=== PATIENT | female | born 1960 ===

== ENCOUNTER 2016-08-08 18:59 | Emergency (ER) | payer MEDICAID ==
[2016-08-08 19:16] VITALS: BMI 39.6
[2016-08-08 19:17] VITALS: BP 171/96; PULSE 68; TEMP 98.6
[2016-08-08] MEDS ORDERED: Sodium Chloride 0.9% 1,000 ML IV STA (19:19)
[2016-08-08] MEDS ORDERED: Pantoprazole 40 MG in Sodium Chloride 0.9% 100 ML IV STA (19:19)
--- NOTE | 2016-08-08 19:19 | ED PDOC ---
Arrival/HPI - General Time Seen by Provider: 08/08/16 19:15 Historian: Patient - History of Present Illness Narrative History of Present Illness (Text): 08/08/16 19:19 Mary Molina is a 55 year old female, whose past medical history includes hypertension and cholecystectomy, who presents to the ED complaining of epigastric pain for 1 day. Patient reports associated nausea. Patient denies any fever, chills, chest pain, shortness of breath, vomiting, diarrhea, urinary symptoms, back pain, neck pain, headache, dizziness, or any other complaints. Time/Duration: < week (1 day) Symptom Onset: Gradual Symptom Course: Unchanged Activities at Onset: Rest, Light Context: Home Past Medical History - Provider Review Nursing Documentation Reviewed: Yes - Infectious Disease Hx of Infectious Diseases: None - Tetanus Immunization Tetanus Immunization: Up to Date - Cardiac Hx Cardiac Disorders: Yes Hx Hypertension: Yes - Pulmonary Hx Respiratory Disorders: No Hx Asthma: No Hx Bronchitis: No Hx Chronic Obstructive Pulmonary Disease (COPD): No Hx Emphysema: No Hx Pneumonia: No Hx Respiratory Aspiration: No Hx Respiratory Tract Infection: No Hx Sleep Apnea: No Hx Tuberculosis: No - Neurological Hx Neurological Disorder: No Hx Alzheimer's Disease: No HX Cerebrovascular Accident: No Hx Dementia: No Hx Dizziness: No Hx Meningitis: No Hx Migraine: No Hx Parkinson's Disease: No Hx Seizures: No Hx Transient Ischemic Attacks (TIA): No - HEENT Hx HEENT Disorder: No Hx Blind: No Hx Cataracts: No Hx Deafness: No Hx Difficulty Chewing: No Hx Epistaxis: No Hx Glaucoma: No Hx Macular Degeneration: No - Renal Hx Renal Disorder: No Hx Dialysis: No Hx Kidney Stones: No Hx Neurogenic Bladder: No Hx Pyelonephritis: No Hx Renal Cancer: No Hx Renal Failure: No - Endocrine/Metabolic Hx Endocrine Disorders: No Hx Adrenal Cancer: No Hx Diabetes Insipidus: No Hx Diabetes Mellitus Type 1: No Hx Diabetes Mellitus Type 2: No Hx Hyperthyroidism: No Hx Hypothyroidism: No Hx Systemic Lupus Erythematosus: No - Hematological/Oncological Hx Blood Disorders: No Hx AIDS: No Hx Anemia: No Hx Cancer: No Hx Chemotherapy: No Hx Cirrhosis: No Hx Hemophilia: No Hx Hepatitis A: No Hx Hepatitis B: No Hx Hepatitis C: No Hx Metastasis: No Hx Shingles: No Hx Sickle Cell Disease: No Hx Unexplained Bleeding: No - Integumentary Hx Dermatological Disorder: No Hx Basal Cell Carcinoma: No Hx Eczema: No Hx Melanoma: No Hx Psoriasis: No Hx Squamous Cell Carcinoma: No - Musculoskeletal/Rheumatological Hx Falls: No - Gastrointestinal Hx Gastrointestinal Disorders: No Hx Colostomy: No Hx Crohn's Disease: No Hx Diverticulitis: No Hx Gall Bladder Disease: No Hx Gastroesophageal Reflux: No Hx Gastrointestinal Ulcer: No Hx Ileostomy: No Hx Liver Failure: No Hx Pancreatitis: No HX Swallowing Problems: No - Genitourinary/Gynecological Hx Genitourinary Disorders: No Hx Hematuria: No Hx Incontinence: No Hx Prostate Problems: No Hx Sexually Transmitted Diseases: No Hx Urinary Tract Infection: No - Psychiatric Hx Psychophysiologic Disorder: No Hx Anxiety: No Hx Bipolar Disorder: No Hx Depression: No Hx Emotional Abuse: No Hx Hallucinations: No Hx Panic Disorder: No Hx Post Traumatic Stress Disorder: No Hx Psychosis: No Hx Physical Abuse: No Hx Schizophrenia: No Hx Sexual Abuse: No Hx Substance Use: No - Past Surgical History Past Surgical History: No Previous - Surgical History Hx Amputation: No Hx Appendectomy: No Hx Cardiac Catheterization: No Hx Cholecystectomy: Yes Hx Coronary Stent: No Hx Gastric Bypass Surgery: No Hx Hysterectomy: Yes Hx Joint Replacement: No Hx Kidney Transplant: No Hx Liver Transplant: No Hx Mastectomy: No Hx Musculoskeletal Surgery: No Hx Open Heart Surgery: No Hx Orthopedic Surgery: No Hx Splenectomy: No Hx Valve Replacement: No - Suicidal Assessment Feels Threatened In Home Enviroment: No Family/Social History - Physician Review Nursing Documentation Reviewed: Yes Family/Social History: No Known Family HX Smoking Status: Never Smoked Hx Alcohol Use: No Hx Substance Use: No Hx Substance Use Treatment: No Allergies/Home Meds Allergies/Adverse Reactions: Allergies No Known Allergies Allergy (Verified 08/08/16 19:19) Home Medications: Home Meds Medication Instructions Recorded Confirmed Atenolol [Tenormin] 12.5 mg PO DAILY 10/25/15 08/08/16 Omeprazole [Omeprazole] 40 mg PO DAILY 04/09/16 08/08/16 Review of Systems - Physician Review All systems were reviewed & negative as marked: Yes - Review of Systems Constitutional: Normal. absent: Fevers Eyes: Normal ENT: Normal Respiratory: Normal. absent: SOB, Cough Cardiovascular: Normal. absent: Chest Pain Gastrointestinal: Abdominal Pain, Nausea. absent: Diarrhea, Vomiting Genitourinary Female: Normal. absent: Dysuria, Frequency, Hematuria, Urine Output Changes Musculoskeletal: Normal. absent: Back Pain, Neck Pain Skin: Normal. absent: Rash Neurological: Normal. absent: Headache, Dizziness Endocrine: Normal Hemo/Lymphatic: Normal Psychiatric: Normal Physical Exam Vital Signs Reviewed: Yes Vital Signs Temp Pulse Resp BP Pulse Ox 08/08/16 21:39 16 98 08/08/16 19:16 98.6 F 68 17 171/96 H 99 Temperature: Afebrile Blood Pressure: Hypertensive Pulse: Regular Respiratory Rate: Normal Appearance: Positive for: Well-Appearing, Non-Toxic, Comfortable Pain Distress: None Mental Status: Positive for: Alert and Oriented X 3 - Systems Exam Head: Present: Atraumatic, Normocephalic Pupils: Present: PERRL Extroacular Muscles: Present: EOMI Conjunctiva: Present: Normal Mouth: Present: Moist Mucous Membranes Neck: Present: Normal Range of Motion Respiratory/Chest: Present: Clear to Auscultation, Good Air Exchange. No: Respiratory Distress, Accessory Muscle Use Cardiovascular: Present: Regular Rate and Rhythm, Normal S1, S2. No: Murmurs Abdomen: Present: Normal Bowel Sounds. No: Tenderness, Distention, Peritoneal Signs Back: Present: Normal Inspection Upper Extremity: Present: Normal Inspection. No: Cyanosis, Edema Lower Extremity: Present: Normal Inspection. No: Edema Neurological: Present: GCS=15, CN II-XII Intact, Speech Normal Skin: Present: Warm, Dry, Normal Color. No: Rashes Psychiatric: Present: Alert, Oriented x 3, Normal Insight, Normal Concentration Medical Decision Making ED Course and Treatment: 08/08/16 19:19 Impression: 55 year old female complaining of epigastric pain and nausea for 1 day. Plan: -- CT Abdomen and Pelvis w/o contrast -- EKG -- Labs, cardiac enzymes, lipase, amylase -- Urinalysis -- IV fluids -- Zofran -- Protonix -- Reassess and disposition Prior Visits: Notes and results from previous visits were reviewed. Progress Notes: 08/08/16 19:37 Reviewed EKG, sinus rhythm at 79 bpm. Sinus arrhythmia. No acute ischemia. 08/08/16 20:59 Reviewed radiology, CT Abdomen and Pelvis shows: 1. Diverticulosis without CT evidence of diverticulitis. 2. Mild gastric wall thickening vs underdistention. Clinical correlation is needed. 3. Probable LEFT ovarian cyst. Suggest ultrasound. 4. Incidental/non-acute findings are described above. 08/08/16 21:26 On re-evaluation, the patient feels better and is in no acute distress. I have discussed the results and plan with the patient, who expresses understanding. Patient in agreement with plan to discharged home. Patient is stable for discharge. Patient was instructed to follow up with physician/clinic in 1-2 days or return if symptoms worsen or new concerning symptoms arise. Re-evaluation Time: 21:27 Reassessment Condition: Re-examined, Improved - Lab Interpretations Lab Results: 08/08/16 19:30 08/08/16 19:30 Lab Results 08/08/16 19:43: Urine Color Norco, Urine Appearance Sl cloudy, Urine pH 5.0, Ur Specific Baden 1.025, Urine Protein 100 H, Urine Glucose (UA) 250 H, Urine Ketones Trace H, Urine Blood Negative, Urine Nitrate Positive H, Urine Bilirubin Negative, Urine Urobilinogen >=8.0, Ur Leukocyte Esterase Trace H, Urine RBC 0 - 2, Urine WBC 0 - 2, Ur Epithelial Cells 1 - 3 08/08/16 19:30: WBC 7.7 D, RBC 4.44, Hgb 13.3, Hct 38.8, MCV 87.4, MCH 30.0, MCHC 34.3, RDW 13.3, Plt Count 295, MPV 11.3 H, Gran % 33.3 L, Lymph % (Auto) 56.7 H, Carver % (Auto) 7.1 H, Eos % (Auto) 2.1, Baso % (Auto) 0.8, Gran # 2.58, Lymph # 4.4 H, Carver # 0.6, Eos # 0.2, Baso # 0.06, PT 11.3, INR 1.05, APTT 28.1 , Sodium 138, Potassium 4.3, Chloride 102, Carbon Dioxide 26, Anion Gap 14, BUN 12, Creatinine 0.7, Est GFR ( Amer) > 60, Est GFR (Non-Af Amer) > 60, Random Glucose 94, Calcium 9.3, Total Bilirubin 0.8, AST 38, ALT 18, Alkaline Phosphatase 102, Lactate Dehydrogenase 685, Total Creatine Kinase 94, Troponin I < 0.01, Total Protein 7.7, Albumin 3.9, Globulin 3.8, Albumin/Globulin Ratio 1.0 L, Amylase 108, Lipase 226 I have reviewed the lab results: Yes - RAD Interpretation Narrative RAD Interpretations (Text): CT Abdomen and Pelvis shows: Lower thorax: No acute findings. ABDOMEN: Liver: Unremarkable. Gallbladder and bile ducts: Cholecystectomy. No ductal dilation. Pancreas: Unremarkable. No ductal dilation. Spleen: No splenomegaly. Adrenals: No mass. Kidneys and ureters: No renal calculi. No hydronephrosis. Stomach and bowel: Mild mural thickening of gastric antrum versus underdistention. Few scattered diverticula within colon. No associated inflammatory stranding. No definite bowel wall thickening. No obstruction. Appendix: Normal caliber. No inflammation. PELVIS: Bladder: Unremarkable. No stones. Reproductive: 1.8 x 1.3 x 1.4 cm hypodense lesion within LEFT ovary. ABDOMEN and PELVIS: Intraperitoneal space: Trace free fluid within pelvis. No free air. Bones/joints: Mild degenerative changes of spine. No acute fracture. Soft tissues: Tiny umbilical hernia containing fat. Vasculature: Unremarkable. No abdominal aortic aneurysm. Lymph nodes: No pathologically enlarged lymph nodes. IMPRESSION: 1. Diverticulosis without CT evidence of diverticulitis. 2. Mild gastric wall thickening vs underdistention. Clinical correlation is needed. 3. Probable LEFT ovarian cyst. Suggest ultrasound. 4. Incidental/non-acute findings are described above. Radiology Orders: 08/08/16 19:19 ABD & PELVIS W/O PO OR IV CONT [CT] Stat - EKG Interpretation Interpreted by ED Physician: Yes Type: 12 lead EKG - Medication Orders Current Medication Orders: Discontinued Medications Sodium Chloride (Sodium Chloride 0.9%) 1,000 mls @ 100 mls/hr IV .Q10H STA Stop: 08/09/16 05:18 Last Admin: 08/08/16 19:38 Dose: 100 MLS/HR eMAR Start Stop Document 08/08/16 19:38 [email or web address] (Rec: 08/08/16 19:38 [email or web address] [facility] [id number]) Intravenous Solution Start Date 08/08/16 Start Time 19:38 End Date 08/08/16 Pantoprazole Sodium 40 mg/ (Sodium Chloride) 100 mls @ 400 mls/hr IV STAT STA Stop: 08/08/16 19:33 Last Admin: 08/08/16 19:38 Dose: 400 MLS/HR eMAR Start Stop Document 08/08/16 19:38 [email or web address] (Rec: 08/08/16 19:38 [email or web address] [facility] [id number]) Intravenous Solution Start Date 08/08/16 Start Time 19:38 End Date 08/08/16 Ondansetron HCl (Zofran Inj) 4 mg IVP STAT STA Stop: 08/08/16 19:20 Last Admin: 08/08/16 19:39 Dose: 4 MG IVP Administration Document 08/08/16 19:39 [email or web address] (Rec: 08/08/16 19:39 [email or web address] [facility] [id number]) Charges for Administration # of IVP Administrations 1 - Scribe Statement The provider has reviewed the documentation as recorded by the Scribe Jackie Sebastian All medical record entries made by the Scribe were at my direction and personally dictated by me. I have reviewed the chart and agree that the record accurately reflects my personal performance of the history, physical exam, medical decision making, and the department course for this patient. I have also personally directed, reviewed, and agree with the discharge instructions and disposition. Disposition/Present on Arrival - Present on Arrival Any Indicators Present on Arrival: No History of DVT/PE: No History of Uncontrolled Diabetes: No Urinary Catheter: No History Surgical Site Infection Following: None - Disposition Have Diagnosis and Disposition been Completed?: Yes Diagnosis: Abdominal pain Disposition: HOME/ ROUTINE Disposition Time: 21:27 Condition: GOOD Discharge Instructions (ExitCare): Acute Abdominal Pain (ED) Prescriptions: Pantoprazole Sodium [Protonix] 40 mg PO DAILY #14 ect Ondansetron [Zofran Odt] 8 mg PO TID PRN #10 odt PRN Reason: Nausea/Vomiting Referrals: Paty Salvador MD [Primary Care Provider] - Follow up with primary
[2016-08-08 19:52] LABS: ADD MANUAL DIFF? NO
[2016-08-08 19:59] LABS: BASO # 0.06 K/mm3 (0.0-2.0); BASO % 0.8 % (0.0-3.0); EOS # 0.2 (0.0-0.7); EOS % 2.1 % (1.5-5.0); GRAN # 2.58 (1.4-6.5); GRAN % 33.3 % (50.0-68.0); HEMATOCRIT 38.8 % (36.0-48.0); LYMPH # 4.4 (1.2-3.4); LYMPH % 56.7 % (22.0-35.0); MEAN CELL VOLUME 87.4 fL (80.0-105.0); MEAN CORPUSCULAR HGB CONC 34.3 g/dl (31.0-37.0); MEAN PLATELET VOLUME 11.3 fl (7.0-11.0); MONO # 0.6 (0.1-0.6); MONO % 7.1 % (1.0-6.0); PLATELET COUNT 295 10^3/uL (120.0-450.0); RED CELL DISTRIBUTION WIDTH 13.3 % (11.5-14.5); WHITE BLOOD COUNT 7.7 10^3/ul (4.5-11.0)
[2016-08-08 20:05] LABS: INR 1.05 (0.93-1.08); PARTIAL THROMBOPLASTIN TIME 28.1 Seconds (23.7-30.8)
[2016-08-08 20:08] LABS: ALKALINE PHOSPHATASE 102 U/L (38-133); ALT/SGPT 18 U/L (7-56); AMYLASE 108 U/L (35-125); AST/SGOT 38 U/L (15-39); BILIRUBIN,TOTAL 0.8 mg/dL (0.2-1.3); BLOOD UREA NITROGEN 12 mg/dL (7-21); CALCIUM 9.3 mg/dL (8.4-10.5); CARBON DIOXIDE 26 mmol/L (21-33); CHLORIDE 102 mmol/L (98-107); GFR AFRICAN-AMERICAN > 60; GLUCOSE,RANDOM 94 mg/dL (70-110); LIPASE 226 U/L (23-300); POTASSIUM 4.3 mmol/L (3.6-5.0); SODIUM 138 mmol/L (132-148); TOTAL PROTEIN 7.7 g/dL (5.8-8.3)
[2016-08-08 20:16] LABS: URINE BILIRUBIN NEGATIVE (NEGATIVE); URINE BLOOD NEGATIVE (NEGATIVE); URINE GLUCOSE (UA) 250 mg/dL (NEGATIVE); URINE KETONE TRACE mg/dL (NEGATIVE); URINE LEUKOCYTE ESTERASE TRACE Leu/uL (NEGATIVE); URINE PROTEIN 100 mg/dL (<30 mg/dL); URINE UROBILINOGEN >=8.0 E.U./dL (<1 E.U./dL)
[2016-08-08 20:19] LABS: TROPONIN I < 0.01 ng/mL
[2016-08-08 20:20] LABS: URINE APPEARANCE SL CLOUDY (CLEAR); URINE COLOR ORANGE (YELLOW)
[2016-08-08 20:21] LABS: URINE RBC 0 - 2 /hpf (0-2); URINE WBC 0 - 2 /hpf (0-6)
--- NOTE | 2016-08-08 20:58 | CT ---
EXAM: CT Abdomen and Pelvis Without Intravenous Contrast CLINICAL HISTORY: 55 years old, female; Pain; Abdominal pain; Epigastric; Patient HX: Epigastric pain; Additional info: Abd pain TECHNIQUE: Axial computed tomography images of the abdomen and pelvis without intravenous contrast. This CT exam was performed using one or more of the following dose reduction techniques: automated exposure control, adjustment of the mA and/or kV according to patient size, and/or use of iterative reconstruction technique. Coronal and sagittal reformatted images were created and reviewed. COMPARISON: No relevant prior studies available. FINDINGS: Lower thorax: No acute findings. ABDOMEN: Liver: Unremarkable. Gallbladder and bile ducts: Cholecystectomy. No ductal dilation. Pancreas: Unremarkable. No ductal dilation. Spleen: No splenomegaly. Adrenals: No mass. Kidneys and ureters: No renal calculi. No hydronephrosis. Stomach and bowel: Mild mural thickening of gastric antrum versus underdistention. Few scattered diverticula within colon. No associated inflammatory stranding. No definite bowel wall thickening. No obstruction. Appendix: Normal caliber. No inflammation. PELVIS: Bladder: Unremarkable. No stones. Reproductive: 1.8 x 1.3 x 1.4 cm hypodense lesion within LEFT ovary. ABDOMEN and PELVIS: Intraperitoneal space: Trace free fluid within pelvis. No free air. Bones/joints: Mild degenerative changes of spine. No acute fracture. Soft tissues: Tiny umbilical hernia containing fat. Vasculature: Unremarkable. No abdominal aortic aneurysm. Lymph nodes: No pathologically enlarged lymph nodes. IMPRESSION: 1. Diverticulosis without CT evidence of diverticulitis. 2. Mild gastric wall thickening vs underdistention. Clinical correlation is needed. 3. Probable LEFT ovarian cyst. Suggest ultrasound. 4. Incidental/non-acute findings are described above.
[2016-08-08 21:40] VITALS: RESP 16; O2SAT 98
--- NOTE | 2016-08-09 08:44 | CARD ---
APPROVED REPORT EKG Measurement Heart [id number] <Conclusion> Sinus rhythm with sinus arrhythmia with occasional premature ventricular complexes Otherwise normal ECG
== END 2016-08-08 21:40 | disposition home or self-care (01) ==
LOC: ED 18:59
DX: R10.13 Epigastric pain (principal)
CPT/HCPCS: 74176; 80053; 81001; 82150; 82550; 83615; 83690; 84484; 85025; 85610; 85730; 87086; 93005; 96374; 99283; C9113; J2405; J7040

== ENCOUNTER 2017-06-19 12:43 | Emergency (ER) | payer MEDICAID ==
[2017-06-19 12:44] VITALS: BMI 39.6
[2017-06-19] MEDS ORDERED: Atrop/Hyosc/Scopal/PB Elixir (120 ml) PO STA (13:26)
[2017-06-19] MEDS ORDERED: Alum-Mag Hydrox-Simethicone Susp (30 mL) PO STA (13:26)
[2017-06-19 13:52] VITALS: RESP 16; TEMP 98.1; O2SAT 99
--- NOTE | 2017-06-19 14:17 | ED PDOC ---
Arrival/HPI - General Chief Complaint: Abdominal Pain Time Seen by Provider: 06/19/17 13:11 Historian: Patient - History of Present Illness Narrative History of Present Illness (Text): 06/19/17 14:00 Mary Molina is a 56 year old female, whose past medical history includes hypertension, who presents to the emergency department complaining of intermittent epigastric burning sensation for the past 2 weeks. Patient reports the sensation radiates to her chest causing her nausea. She reports her symptoms being worse in the morning and after she eats. She reports previously taking medication but currently has none to take. Patient denies chest pain, shortness of breath, cough, vomiting, fever, or other complaints. PMD: Dr. Archer Time/Duration: > week Symptom Onset: Gradual Symptom Course: Unchanged Quality: Burning Activities at Onset: Light, Eating Past Medical History - Provider Review Nursing Documentation Reviewed: Yes - Infectious Disease Hx of Infectious Diseases: None - Tetanus Immunization Tetanus Immunization: Up to Date - Cardiac Hx Cardiac Disorders: Yes Hx Hypertension: Yes - Pulmonary Hx Respiratory Disorders: No Hx Asthma: No Hx Bronchitis: No Hx Chronic Obstructive Pulmonary Disease (COPD): No Hx Emphysema: No Hx Pneumonia: No Hx Respiratory Aspiration: No Hx Respiratory Tract Infection: No Hx Sleep Apnea: No Hx Tuberculosis: No - Neurological Hx Neurological Disorder: No Hx Alzheimer's Disease: No HX Cerebrovascular Accident: No Hx Dementia: No Hx Dizziness: No Hx Meningitis: No Hx Migraine: No Hx Parkinson's Disease: No Hx Seizures: No Hx Transient Ischemic Attacks (TIA): No - HEENT Hx HEENT Disorder: No Hx Blind: No Hx Cataracts: No Hx Deafness: No Hx Difficulty Chewing: No Hx Epistaxis: No Hx Glaucoma: No Hx Macular Degeneration: No - Renal Hx Renal Disorder: No Hx Dialysis: No Hx Kidney Stones: No Hx Neurogenic Bladder: No Hx Pyelonephritis: No Hx Renal Cancer: No Hx Renal Failure: No - Endocrine/Metabolic Hx Endocrine Disorders: No Hx Adrenal Cancer: No Hx Diabetes Insipidus: No Hx Diabetes Mellitus Type 1: No Hx Diabetes Mellitus Type 2: No Hx Hyperthyroidism: No Hx Hypothyroidism: No Hx Systemic Lupus Erythematosus: No - Hematological/Oncological Hx Blood Disorders: No Hx AIDS: No Hx Anemia: No Hx Cancer: No Hx Chemotherapy: No Hx Cirrhosis: No Hx Hemophilia: No Hx Hepatitis A: No Hx Hepatitis B: No Hx Hepatitis C: No Hx Metastasis: No Hx Shingles: No Hx Sickle Cell Disease: No Hx Unexplained Bleeding: No - Integumentary Hx Dermatological Disorder: No Hx Basal Cell Carcinoma: No Hx Eczema: No Hx Melanoma: No Hx Psoriasis: No Hx Squamous Cell Carcinoma: No - Musculoskeletal/Rheumatological Hx Falls: No - Gastrointestinal Hx Gastrointestinal Disorders: No Hx Colostomy: No Hx Crohn's Disease: No Hx Diverticulitis: No Hx Gall Bladder Disease: No Hx Gastroesophageal Reflux: No Hx Gastrointestinal Ulcer: No Hx Ileostomy: No Hx Liver Failure: No Hx Pancreatitis: No HX Swallowing Problems: No - Genitourinary/Gynecological Hx Genitourinary Disorders: No Hx Hematuria: No Hx Incontinence: No Hx Prostate Problems: No Hx Sexually Transmitted Diseases: No Hx Urinary Tract Infection: No - Psychiatric Hx Psychophysiologic Disorder: No Hx Anxiety: No Hx Bipolar Disorder: No Hx Depression: No Hx Emotional Abuse: No Hx Hallucinations: No Hx Panic Disorder: No Hx Post Traumatic Stress Disorder: No Hx Psychosis: No Hx Physical Abuse: No Hx Schizophrenia: No Hx Sexual Abuse: No Hx Substance Use: No - Past Surgical History Past Surgical History: No Previous - Surgical History Hx Amputation: No Hx Appendectomy: No Hx Cardiac Catheterization: No Hx Cholecystectomy: Yes Hx Coronary Stent: No Hx Gastric Bypass Surgery: No Hx Hysterectomy: Yes Hx Joint Replacement: No Hx Kidney Transplant: No Hx Liver Transplant: No Hx Mastectomy: No Hx Musculoskeletal Surgery: No Hx Open Heart Surgery: No Hx Orthopedic Surgery: No Hx Splenectomy: No Hx Valve Replacement: No - Anesthesia Hx Anesthesia: No - Suicidal Assessment Feels Threatened In Home Enviroment: No Family/Social History - Physician Review Nursing Documentation Reviewed: Yes Family/Social History: Unknown Family HX Smoking Status: Never Smoked Hx Alcohol Use: No Hx Substance Use: No Hx Substance Use Treatment: No Allergies/Home Meds Allergies/Adverse Reactions: Allergies No Known Allergies Allergy (Verified 06/19/17 13:49) Home Medications: Home Meds Medication Instructions Recorded Confirmed Aspirin [Aspirin Chewable] 81 mg PO DAILY 06/19/17 06/19/17 Atorvastatin [Lipitor] 10 mg PO DAILY 06/19/17 06/19/17 amLODIPine [Norvasc] 10 mg PO DAILY 06/19/17 06/19/17 Review of Systems - Review of Systems Constitutional: absent: Fevers Respiratory: absent: SOB, Cough Cardiovascular: absent: Chest Pain Gastrointestinal: Nausea, Other (epigastric burning sensation that radiates to her chest). absent: Abdominal Pain, Diarrhea, Vomiting Genitourinary Female: absent: Dysuria Musculoskeletal: absent: Back Pain Skin: absent: Rash Neurological: absent: Headache Endocrine: absent: Diaphoresis Hemo/Lymphatic: absent: Adenopathy Psychiatric: absent: Anxiety Physical Exam Vital Signs Reviewed: Yes Vital Signs Temp Pulse Resp BP Pulse Ox 06/19/17 14:36 64 16 109/64 99 06/19/17 13:52 98.1 F 74 16 119/71 99 Temperature: Afebrile Blood Pressure: Normal Pulse: Regular Respiratory Rate: Normal Appearance: Positive for: Well-Appearing, Non-Toxic, Comfortable Pain Distress: None Mental Status: Positive for: Alert and Oriented X 3 - Systems Exam Head: Present: Atraumatic, Normocephalic Pupils: Present: PERRL Extroacular Muscles: Present: EOMI Conjunctiva: Present: Normal Mouth: Present: Moist Mucous Membranes Respiratory/Chest: Present: Clear to Auscultation, Good Air Exchange. No: Respiratory Distress, Accessory Muscle Use, Wheezes, Rales, Retracting, Rhonchi Cardiovascular: Present: Regular Rate and Rhythm, Normal S1, S2. No: Murmurs Abdomen: Present: Normal Bowel Sounds. No: Tenderness, Distention, Peritoneal Signs, Rebound, Guarding Neurological: Present: GCS=15, CN II-XII Intact, Speech Normal Skin: Present: Warm, Dry, Normal Color. No: Rashes Psychiatric: Present: Alert, Oriented x 3, Normal Insight, Normal Concentration Medical Decision Making ED Course and Treatment: 06/19/17 Impression: 56 year old female with unremarkable physical exam complaining of burning sensation in epigastric region radiating to chest Differential Diagnosis included but are not limited to: GERD Plan: -- EKG -- , Lidocaine, Maalox, Pepcid, Zofran -- Reassess and disposition Progress Notes: EKG: Ordered, reviewed, and independently interpreted the EKG. Rate : 71 BPM Rhythm : NSR Interpretation : Non ST-segment elevations or depressions, no T-wave inversions , normal intervals. No changes to previous EKG. Comparison : 08/08/2016 06/19/17 14:57 Patient are consistent with patients previous symptoms of GERD. Her symptoms resolved in the ED. She has an EKG that has no change from previous. She is not complaining of any pain. She will make sure to follow up with Dr. Salvador in 2- 3days. Advised to return to the ED if symptoms worsen or any other concern. - EKG Interpretation Interpreted by ED Physician: Yes Type: 12 lead EKG Comparison: Com.w/previous EKG - Medication Orders Current Medication Orders: Discontinued Medications Al Hydrox/Mg Hydrox/Simethicone (Maalox Plus 30 Ml) 30 ml PO STAT STA Stop: 06/19/17 13:27 Last Admin: 06/19/17 14:05 Dose: 30 ml Belladonna/Phenobarbital ( Elixir) 5 ml PO STAT STA Stop: 06/19/17 13:27 Last Admin: 06/19/17 14:05 Dose: 5 ml Famotidine (Pepcid) 20 mg PO STAT STA Stop: 06/19/17 13:26 Last Admin: 06/19/17 14:06 Dose: 20 mg Lidocaine HCl (Lidocaine 2% Viscous) 15 ml PO STAT STA Stop: 06/19/17 13:27 Last Admin: 06/19/17 14:06 Dose: 15 ml Ondansetron HCl (Zofran Odt) 4 mg PO STAT STA Stop: 06/19/17 13:26 Last Admin: 06/19/17 14:05 Dose: 4 mg - Scribe Statement The provider has reviewed the documentation as recorded by the Yanira Gutierrez Provider Scribe Attestation: All medical record entries made by the Lesviaibziggy were at my direction and personally dictated by me. I have reviewed the chart and agree that the record accurately reflects my personal performance of the history, physical exam, medical decision making, and the department course for this patient. I have also personally directed, reviewed, and agree with the discharge instructions and disposition. Disposition/Present on Arrival - Present on Arrival Any Indicators Present on Arrival: No History of DVT/PE: No History of Uncontrolled Diabetes: No Urinary Catheter: No History of Decub. Ulcer: No History Surgical Site Infection Following: None - Disposition Have Diagnosis and Disposition been Completed?: Yes Diagnosis: Gastritis, GERD (gastroesophageal reflux disease) Disposition: HOME/ ROUTINE Disposition Time: 14:59 Patient Plan: Discharge Condition: IMPROVED Discharge Instructions (ExitCare): Gastroesophageal Reflux Disease (ED) Additional Instructions: Ms Molina, thank you for letting us take care of you today. Your provider was Dr. Goetz. You were treated for Gastric Reflux. The emergency medical care you received today was directed at your acute symptoms. If you were prescribed any medication, please fill it and take as directed. It may take several days for your symptoms to resolve. Return to the Emergency Department if your symptoms worsen, do not improve, or if you have any other problems. Please contact your doctor or call one of the physicians/clinics you have been referred to that are listed on the Patient Visit Information form that is included in your discharge packet. Bring any paperwork you were given at discharge with you along with any medications you are taking to your follow up visit. Our treatment cannot replace ongoing medical care by a primary care provider (PCP) outside of the emergency department. Thank you for allowing the [facility] team to be part of your care today. If you had an X-Ray or CT scan: A Radiologist will review the ED reading if any change in treatment is needed we will contact you. If you had a blood, urine, or wound culture: It will take several days for the results, if any change in treatment is needed we will contact you. If you had an STI test: It will take 48 hours for the results. Please call after 1 week if you have not heard back. Prescriptions: Ondansetron ODT [Zofran ODT] 4 mg PO Q6 #14 odt Ranitidine HCl [Zantac] 150 mg PO BID PRN #30 tablet PRN Reason: Pain, Mild (1-3) Referrals: Paty Salvador MD [Primary Care Provider] - Follow up with primary Forms: [employer] ([employer]), WORK NOTE
[2017-06-19 14:37] VITALS: BP 109/64; PULSE 64
--- NOTE | 2017-06-20 21:46 | CARD ---
APPROVED REPORT EKG Measurement Heart [id number] <Conclusion> Sinus rhythm with occasional APCs Cannot rule out Anterior infarct, age undetermined Abnormal ECG
== END 2017-06-19 14:36 | disposition home or self-care (01) ==
LOC: ED 12:43
DX: K29.70 Gastritis, unspecified, without bleeding (principal); K21.9 Gastro-esophageal reflux disease without esophagitis; I10 Essential (primary) hypertension